=== PATIENT | female | born 1940 | race Caucasian/White ===

== ENCOUNTER 2016-05-16 21:00 | Emergency (ER) | payer BC ==
[~2016-05-16] VITALS: Ht 165.1 cm; Wt 67.0 kg
[2016-05-16 21:02] VITALS: BP 164/76; PULSE 80; RESP 16; TEMP 97.7; O2SAT 98
[2016-05-16] MEDS ORDERED: PROPARACAINE HCL 0.5% OPHT SOLN 15 ML BTL EACH EYE ONE (21:15)
[2016-05-16] MEDS ORDERED: TETANUS/DIPHTHERIA TOXOID ADULT 0.5 ML VIAL IM ONE (21:30)
[2016-05-16] MEDS ORDERED: ERYTHROMYCIN 0.5% OPTH OINT 3.5 GM TUBO EACH EYE ONE (21:30)
--- NOTE | 2016-05-16 21:32 | PD ---
HPI Chief Complaint: Eye Problems/Injury Time Seen by Provider: 21:27 Travel History International Travel<30 days: No Contact w/Intl Traveler<30days: No Traveled to known affect area: No History of Present Illness HPI 75-year-old white female presents to emergency department with complaints of right eye pain. She states that she was at dinner this evening sometime around 7:30 PM. She states that the production troubleshooter accidentally struck her in the right I with the corner of the menu. She had immediate pain followed by some tearing and questionable blood. She has had persistent pressure sensation and fullness in her right thigh. She denies any blurred vision or double vision. She has had some tearing. She states the pain is mild. She has not had a tetanus shot over 5 years. She does not work contacts or glasses. [facility] Past Medical History Medical History: Denies Significant Hx Tetanus Vaccination: > 5 Years Past Surgical History Surgical History: No Previous Surgery Social History Alcohol Use: No Tobacco Use: Yes Allergies-Medications (Allergen,Severity, Reaction): Coded Allergies: No Known Allergies (Unverified , 05/16/16) Review of Systems Except as stated in HPI: all other systems reviewed are Neg Eyes: Positive: Redness, Pain, Tearing, No: Diploplia, Blurred Vision, Photophobia, Drainage, Foreign Body Sensation, Visual changes Physical Exam Narrative GENERAL: Well-developed, well-nourished in no acute distress. Nontoxic appearing. HEAD: Normocephalic, atraumatic. EYES: Pupils equal round and reactive. Extraocular motions intact. No scleral icterus. The right eye is injected. She has an area of subconjunctival hemorrhage at the 3-6:00 hour. Lids are flipped and no foreign body seen. Ophthaine is instilled with resolution of her pain. Fluorescein stain reveals a superficial abrasion at the 1:00 hour. No involvement of the central vision. No injection or drainage in the left eye. Visual acuity noted on the nursing chart. ENT: TMs clear without erythema. The external auditory canals clear. Nose: clear . Posterior pharynx is pink and moist. No tonsillar edema or exudate. Uvula midline. Airway patent. NECK: Trachea midline.Supple, nontender, moves head freely. No central bony tenderness or spasm. CARDIOVASCULAR: Regular rate and rhythm without murmurs, gallops, or rubs. RESPIRATORY: Clear to auscultation. Breath sounds equal bilaterally. No wheezes , rales, or rhonchi. GASTROINTESTINAL: Abdomen soft, non-tender, nondistended. No hepato-splenomegaly , or palpable masses. No guarding. EXTREMITIES: No clubbing, cyanosis, or edema. No joint tenderness, effusion, or edema noted. BACK: Nontender without deformity or crepitance. No flank tenderness. Data Data Last Documented VS Vital Signs Date Time Temp Pulse Resp B/P Pulse Ox O2 Delivery O2 Flow Rate FiO2 05/16/16 21:02 97.7 80 16 164/76 98 Orders Proparacaine 0.5% Opth Soln (Alcaine 0.5 (05/16/16 21:15) Erythromycin 0.5% Opth Oint (Ilotycin 0. (05/16/16 21:30) Tetanus/Diphtheria Tox Adult (Tetanus/Di (05/16/16 21:30) MDM Medical Decision Making Medical Screen Exam Complete: Yes Emergency Medical Condition: Yes Medical Record Reviewed: Yes Differential Diagnosis MDM: High Differential diagnoses: Acute conjunctivitis (bacterial, viral, allergic, traumatic), glaucoma, iritis, traumatic globe injury, foreign body, corneal abrasion, corneal ulcer, diabetic retinopathy, photokeratitis, herpes keratitis , CMV retinitis Narrative Course Patient has sustained a corneal abrasion and subconjunctival hemorrhage. Her tetanus immunization is updated. She is given erythromycin ointment to the right eye. Diagnosis Primary Impression: Injury of conjunctiva and corneal abrasion of right eye w/o FB Qualified Code: S05.01XA - Injury of conjunctiva and corneal abrasion of right eye w/o FB, initial encounter Additional Impression: Subconjunctival hemorrhage of right eye Patient Instructions: General Instructions Additional Instructions: Rest. Tylenol for pain. Erythromycin ointment one ribbon to the right eye 4 times daily for the next 3 days. Follow-up with an eye doctor in the next 2 days. Return to the ER if any problems. Med/Other Pt SpecificInfo: Prescription(s) given Disposition: 01 DISCHARGE HOME Condition: Stable Grant Garrett May 16, 2016 21:32
== END 2016-05-16 22:09 | disposition home or self-care (01) ==
LOC: NEPB 21:00
DX: S05.01XA Injury of conjunctiva and corneal abrasion without foreign body, right eye, initial encounter (principal); H11.31 Conjunctival hemorrhage, right eye; W22.8XXA Striking against or struck by other objects, initial encounter; Y92.511 Restaurant or cafe as the place of occurrence of the external cause; Z23 Encounter for immunization
CPT/HCPCS: 90471; 90714